=== PATIENT | female | born 1935 | race Caucasian/White ===

== ENCOUNTER → 2016-10-05 | Outpatient (CLI) | payer MEDICARE ==
[~2016-10-05] MED LIST: ASPI81 PO; ATOR20TA86 PO; CELLULAR VITALITY PO; FLUO-191 PO; FURO40 PO; GLIP5 PO; INSLAN SQ; INSU300I INJ; LEVO50 PO; LOSA25TA21 PO; LUTE40CA PO; OMEG300C3 PO; OMEGA COMPLEX PO; OMEP20 PO; PERCT PO; ROPI1TAB11 PO; [UNRECOGNIZED DRUG - OTHER] PO; [UNRECOGNIZED DRUG - OTHER] PO
[2016-10-05 10:46] VITALS: BP 140/79
[2016-10-05 11:47] LABS: GLUCOSE,POINT OF CARE 233 MG/DL (70-110)
== END | disposition home or self-care (01) ==
LOC: SRCNTR 10:38
PROVIDERS: ATTEND Hospitalist
DX: E11.9 Type 2 diabetes mellitus without complications (principal); E78.5 Hyperlipidemia, unspecified; K21.9 Gastro-esophageal reflux disease without esophagitis; D64.9 Anemia, unspecified; F32.9 Major depressive disorder, single episode, unspecified; E03.9 Hypothyroidism, unspecified; R53.83 Other fatigue; G89.29 Other chronic pain; R05 Cough; G25.81 Restless legs syndrome; M16.11 Unilateral primary osteoarthritis, right hip; Z90.49 Acquired absence of other specified parts of digestive tract
CPT/HCPCS: 82962; G0463

== ENCOUNTER → 2016-10-26 | Outpatient (CLI) | payer MEDICARE ==
[2016-10-26 11:55] LABS: BASOPHILS % (AUTO) 0.3 % (0.0-2.0); EOSINOPHILS % (AUTO) 0.9 % (1.0-6.0); HEMATOCRIT 33.7 % (36-46); HEMOGLOBIN 10.8 g/dL (12.0-16.0); LYMPHOCYTES # (AUTO) 1.8 K/uL (1.0-4.8); LYMPHOCYTES % (AUTO) 22.2 % (22.0-44.0); MEAN CORPUSCULAR HEMOGLOBIN 27.3 pg (26.0-34.0); MEAN CORPUSCULAR VOLUME 85 fL (80-100); MONOCYTES # (AUTO) 0.6 K/uL (0.1-1.0); MONOCYTES % (AUTO) 6.9 % (2.0-9.0); NEUTROPHILS # (AUTO) 5.7 K/uL (1.8-7.7); NEUTROPHILS % (AUTO) 69.7 % (40.0-70.0); PLATELET COUNT (AUTO) 305 K/uL (150-450); RED BLOOD CELL COUNT(AUTO) 3.96 MIL/uL (4.00-5.20); RED CELL DISTRIBUTION WIDTH 16.6 % (11.5-14.5); WHITE BLOOD COUNT (AUTO) 8.1 K/uL (4.5-11.0)
[2016-10-26 12:03] LABS: HEMOGLOBIN A1C 8.9 % (4.5-6.2)
[2016-10-26 12:12] LABS: ALBUMIN 2.9 g/dL (3.4-5.0); BILIRUBIN,TOTAL 0.4 mg/dL (0.1-1.0); CALCIUM, TOTAL 8.8 mg/dL (8.8-10.5); CHOL/HDL RATIO 2.4 (3.9-5.7); CREATININE 1.2 mg/dL (0.60-1.30); POTASSIUM 3.9 mmol/L (3.5-5.1); THYROID STIMULATING HORMONE 4.16 uIU/mL (0.36-3.74)
[2016-10-27 16:45] LABS: APPEARANCE,URINE CLEAR (CLEAR); GLUCOSE, URINE (UA) NEGATIVE (NEGATIVE); KETONES,URINE NEGATIVE (NEGATIVE); LEUKOCYTE ESTERASE ,URINE SMALL (NEGATIVE); OCCULT BLOOD,URINE NEGATIVE (NEGATIVE); PROTEIN,URINE NEGATIVE (NEGATIVE)
[2016-10-27 16:59] LABS: RBC,URINE None Seen /HPF (0-2)
[2016-10-27 17:00] LABS: SQUAMOUS EPITHELIAL CELL,UR Rare /LPF (None Seen)
== END | disposition home or self-care (01) ==
LOC: LABPV 10:44
PROVIDERS: ATTEND Hospitalist
DX: E11.9 Type 2 diabetes mellitus without complications (principal)
CPT/HCPCS: 82271; 83036; 84443

== ENCOUNTER → 2016-11-02 | Outpatient (CLI) | payer MEDICARE ==
[~2016-11-02] VITALS: Ht 165.1 cm; Wt 113.5 kg
[2016-11-02 11:20] VITALS: BP 105/60
[2016-11-02 13:11] LABS: GLUCOSE,POINT OF CARE 153 MG/DL (70-110)
== END | disposition home or self-care (01) ==
LOC: SRCNTR 11:01
PROVIDERS: ATTEND Hospitalist
DX: I10 Essential (primary) hypertension (principal); E11.65 Type 2 diabetes mellitus with hyperglycemia; E03.9 Hypothyroidism, unspecified; E78.5 Hyperlipidemia, unspecified; E66.9 Obesity, unspecified; R53.83 Other fatigue; K21.9 Gastro-esophageal reflux disease without esophagitis; F32.9 Major depressive disorder, single episode, unspecified; D64.9 Anemia, unspecified; G89.29 Other chronic pain; R05 Cough; G25.81 Restless legs syndrome; R60.9 Edema, unspecified; Z90.49 Acquired absence of other specified parts of digestive tract
CPT/HCPCS: 82962; G0463

== ENCOUNTER → 2016-12-10 | Outpatient (CLI) | payer MEDICARE ==
[~2016-12-10] VITALS: Ht 165.1 cm; Wt 118.0 kg
[~2016-12-10] MED LIST changes: -FURO40 PO; -GLIP5 PO; -INSU300I INJ; -OMEG300C3 PO
[2016-12-10 10:38] VITALS: BP 110/58
[2016-12-10 12:16] LABS: GLUCOSE,POINT OF CARE 123 MG/DL (70-110)
== END | disposition home or self-care (01) ==
LOC: SRCNTR 10:24
PROVIDERS: ATTEND Hospitalist
DX: E11.65 Type 2 diabetes mellitus with hyperglycemia (principal); E66.9 Obesity, unspecified; K21.9 Gastro-esophageal reflux disease without esophagitis; E78.5 Hyperlipidemia, unspecified; E03.9 Hypothyroidism, unspecified; F32.9 Major depressive disorder, single episode, unspecified; D64.9 Anemia, unspecified; G89.29 Other chronic pain; R05 Cough; G25.81 Restless legs syndrome; R60.9 Edema, unspecified; H16.429 Pannus (corneal), unspecified eye; M16.11 Unilateral primary osteoarthritis, right hip; R53.83 Other fatigue; Z91.11 Patient's noncompliance with dietary regimen; Z90.49 Acquired absence of other specified parts of digestive tract
CPT/HCPCS: 82962

== ENCOUNTER → 2017-01-08 | Outpatient (CLI) | payer MEDICARE ==
[~2017-01-08] VITALS: Ht 165.1 cm; Wt 112.0 kg
[2017-01-08 10:58] VITALS: BP 130/70
== END | disposition home or self-care (01) ==
LOC: SRCNTR 10:48
PROVIDERS: ATTEND Hospitalist
DX: K21.9 Gastro-esophageal reflux disease without esophagitis (principal); I10 Essential (primary) hypertension; E66.9 Obesity, unspecified; E78.5 Hyperlipidemia, unspecified; E03.9 Hypothyroidism, unspecified; F32.9 Major depressive disorder, single episode, unspecified; D64.9 Anemia, unspecified; G89.29 Other chronic pain; R05 Cough; E11.65 Type 2 diabetes mellitus with hyperglycemia; G25.81 Restless legs syndrome; M75.101 Unspecified rotator cuff tear or rupture of right shoulder, not specified as traumatic; M16.11 Unilateral primary osteoarthritis, right hip; Z90.49 Acquired absence of other specified parts of digestive tract
CPT/HCPCS: G0463

== ENCOUNTER → 2017-02-05 | Outpatient (CLI) | payer MEDICARE ==
[~2017-02-05] VITALS: Ht 165.1 cm; Wt 116.5 kg
[~2017-02-05] MED LIST changes: +FURO40 PO; +INSU300I INJ; +OMEG300C3 PO
[2017-02-05 10:29] VITALS: BP 117/64
[2017-02-05 11:22] LABS: GLUCOSE,POINT OF CARE 94 MG/DL (70-110)
== END | disposition home or self-care (01) ==
LOC: SRCNTR 10:02
PROVIDERS: ATTEND Hospitalist
DX: J44.9 Chronic obstructive pulmonary disease, unspecified (principal); E11.9 Type 2 diabetes mellitus without complications
CPT/HCPCS: 82962; G0463

== ENCOUNTER → 2017-03-08 | Outpatient (CLI) | payer MEDICARE ==
[~2017-03-08] MED LIST changes: -CELLULAR VITALITY PO; -INSLAN SQ; -OMEGA COMPLEX PO; -[UNRECOGNIZED DRUG - OTHER] PO; -[UNRECOGNIZED DRUG - OTHER] PO
== END | disposition home or self-care (01) ==
LOC: LABPV 11:15
PROVIDERS: ATTEND Hospitalist
DX: E11.9 Type 2 diabetes mellitus without complications (principal)
CPT/HCPCS: 83036

== ENCOUNTER → 2017-04-19 | Outpatient (CLI) | payer MEDICARE ==
[~2017-04-19] VITALS: Ht 165.1 cm; Wt 114.0 kg
[2017-04-19 14:23] VITALS: BP 136/84
== END | disposition home or self-care (01) ==
LOC: SRCNTR 14:09
PROVIDERS: ATTEND Podiatrist Foot & Ankle Surgery
DX: E11.9 Type 2 diabetes mellitus without complications (principal); L57.0 Actinic keratosis; M79.675 Pain in left toe(s); M79.674 Pain in right toe(s); L29.9 Pruritus, unspecified
CPT/HCPCS: G0463

== ENCOUNTER → 2017-07-08 | Outpatient (CLI) | payer MEDICARE ==
[~2017-07-08] VITALS: Ht 167.6 cm; Wt 116.0 kg
[~2017-07-08] MED LIST changes: +ESOM40CA54 PO; +INFLUENZA VIRUS VACCINE QVS 2017-18 (3YR+)/PF 60 MCG/0.5 ML SYRINGE IM ONE; +KDUR10 PO; +METF500T4 PO
[2017-07-08 11:36] VITALS: BP 126/65
[2017-07-08 14:22] LABS: GLUCOMETER DEV NAME(LOC) SHC; GLUCOSE,POINT OF CARE 234 MG/DL (70-110)
== END | disposition home or self-care (01) ==
LOC: SRCNTR 11:24
PROVIDERS: ATTEND Hospitalist
DX: I10 Essential (primary) hypertension (principal); E11.65 Type 2 diabetes mellitus with hyperglycemia; E78.5 Hyperlipidemia, unspecified; E03.9 Hypothyroidism, unspecified; F32.9 Major depressive disorder, single episode, unspecified; G25.81 Restless legs syndrome; G89.4 Chronic pain syndrome; R53.83 Other fatigue; M16.11 Unilateral primary osteoarthritis, right hip; E66.9 Obesity, unspecified; K21.9 Gastro-esophageal reflux disease without esophagitis; D64.9 Anemia, unspecified; Z90.49 Acquired absence of other specified parts of digestive tract
CPT/HCPCS: 82962; 90471; G0463

== ENCOUNTER → 2017-09-16 | Outpatient (CLI) | payer MEDICARE ==
[~2017-09-16] VITALS: Ht 166.4 cm; Wt 114.0 kg
[~2017-09-16] MED LIST changes: -INFLUENZA VIRUS VACCINE QVS 2017-18 (3YR+)/PF 60 MCG/0.5 ML SYRINGE IM ONE
[2017-09-16 11:14] VITALS: BP 135/72
[2017-09-16 11:17] LABS: GLUCOMETER DEV NAME(LOC) SHC; GLUCOSE,POINT OF CARE 242 MG/DL (70-110)
== END | disposition home or self-care (01) ==
LOC: SRCNTR 11:03
PROVIDERS: ATTEND Hospitalist
DX: I10 Essential (primary) hypertension (principal); E11.65 Type 2 diabetes mellitus with hyperglycemia; E66.9 Obesity, unspecified; M16.11 Unilateral primary osteoarthritis, right hip; K21.9 Gastro-esophageal reflux disease without esophagitis; E78.5 Hyperlipidemia, unspecified; E03.9 Hypothyroidism, unspecified; G89.29 Other chronic pain; G25.81 Restless legs syndrome; F32.9 Major depressive disorder, single episode, unspecified; Z79.4 Long term (current) use of insulin; Z79.82 Long term (current) use of aspirin; Z90.49 Acquired absence of other specified parts of digestive tract; D64.9 Anemia, unspecified
CPT/HCPCS: 82962 ×2; G0463

== ENCOUNTER → 2018-01-27 | Outpatient (CLI) | payer MEDICARE ==
[~2018-01-27] MED LIST changes: -METF500T4 PO; +METF500T6 PO; -OMEG300C3 PO
[2018-01-27 11:50] LABS: BASOPHILS % (AUTO) 0.6 % (0.0-2.0); HEMATOCRIT 35.7 % (36-46); HEMOGLOBIN 11.9 g/dL (12.0-16.0); LYMPHOCYTES % (AUTO) 33.6 % (22.0-44.0); MEAN CORPUSCULAR HEMOGLOBIN 28.1 pg (26.0-34.0); MEAN CORPUSCULAR HGB CONC 33.5 G/dL (31.0-37.0); MEAN CORPUSCULAR VOLUME 84 fL (80-100); MONOCYTES # (AUTO) 0.6 K/uL (0.1-1.0); MONOCYTES % (AUTO) 6.4 % (2.0-9.0); NEUTROPHILS # (AUTO) 5.1 K/uL (1.8-7.7); NEUTROPHILS % (AUTO) 57.4 % (40.0-70.0); PLATELET COUNT (AUTO) 301 K/uL (150-450); RED BLOOD CELL COUNT(AUTO) 4.26 MIL/uL (4.00-5.20); RED CELL DISTRIBUTION WIDTH 16.6 % (11.5-14.5)
[2018-01-27 11:57] LABS: HEMOGLOBIN A1C 7.9 % (4.5-6.2)
[2018-01-27 12:20] LABS: ALBUMIN 3.1 g/dL (3.4-5.0); BILIRUBIN,TOTAL 0.5 mg/dL (0.1-1.0); CHOL/HDL RATIO 2.3 (3.9-5.7); CREATININE 1.49 mg/dL (0.60-1.30); FREE T4 (FREE THYROXINE) 0.9 ng/dL (0.76-1.46); POTASSIUM 3.8 mmol/L (3.5-5.1); THYROID STIMULATING HORMONE 2.32 uIU/mL (0.36-3.74); TOTAL PROTEIN, SERUM 7.4 g/dL (6.4-8.2)
== END | disposition home or self-care (01) ==
LOC: LABPV 10:48
PROVIDERS: ATTEND Hospitalist
DX: Z00.01 Encounter for general adult medical examination with abnormal findings (principal); Z79.899 Other long term (current) drug therapy
CPT/HCPCS: 82271; 83036; 84439; 84443

== ENCOUNTER → 2018-07-14 | Outpatient (CLI) | payer MEDICARE ==
[~2018-07-14] VITALS: Ht 166.4 cm; Wt 105.5 kg
[~2018-07-14] MED LIST changes: -LOSA25TA21 PO; +LOSA25TA41 PO; +METF-960 PO; -METF500T6 PO
[2018-07-14 12:18] LABS: GLUCOMETER DEV NAME(LOC) SHC; GLUCOSE,POINT OF CARE 233 MG/DL (70-110)
[2018-07-14 12:30] VITALS: BP 130/61
== END | disposition home or self-care (01) ==
LOC: SRCNTR 11:33
PROVIDERS: ATTEND Hospitalist
DX: Z23 Encounter for immunization (principal); E11.65 Type 2 diabetes mellitus with hyperglycemia; E78.5 Hyperlipidemia, unspecified; E03.9 Hypothyroidism, unspecified; G89.4 Chronic pain syndrome; E66.9 Obesity, unspecified; K21.9 Gastro-esophageal reflux disease without esophagitis; D64.9 Anemia, unspecified; F32.9 Major depressive disorder, single episode, unspecified; G25.81 Restless legs syndrome; Z90.49 Acquired absence of other specified parts of digestive tract
CPT/HCPCS: 82962; 90471; 90686; G0463